=== PATIENT | female | born 1975 | race Two or more races ===

== ENCOUNTER 2020-09-24 06:10 | Day surgery (SDC) | payer OTHER ==
[~2020-09-24 06:10] MED LIST: DAILY MULTIPLE1 EAC2 PO
[2020-09-24] MEDS ORDERED: ULTRACET PO (11:53)
[2020-09-24] MEDS ORDERED: MACROBID 100 M100 MG PO (11:53)
== END 2020-09-24 18:16 | disposition home or self-care (01) ==
LOC: CIR.AMB 06:10 → ADM 10-17 10:45
PROVIDERS: ATTEND Obstetrics & Gynecology Gynecology
DX: N39.3 Stress incontinence (female) (male) (principal); Z20.822 Contact with and (suspected) exposure to COVID-19
CPT/HCPCS: 57288; C1771